=== PATIENT | male | born 1975 | race Caucasian/White ===

== ENCOUNTER 2022-06-07 07:41 | Emergency (ER) | payer OTHER ==
[2022-06-07 08:37] LABS: ALBUMIN 4.3 g/dL (3.5-5.0)
[2022-06-07 08:38] LABS: POTASSIUM 3.6 mmol/L (3.5-5.1)
[2022-06-07 08:39] LABS: CALCIUM 9.8 mg/dL (8.3-10.5)
[2022-06-07 08:40] LABS: TOTAL PROTEIN 8.2 g/dL (6.4-8.3)
[2022-06-07 08:42] LABS: TOTAL BILIRUBIN 1.2 mg/dL (0.2-1.2)
[2022-06-07 08:53] LABS: BASO # 0.01 K/mm3 (0.02-0.10); EOS # 0.01 K/mm3 (0.04-0.40); EOS % 0.2 % (0.0-4.0); HEMATOCRIT 45.4 % (42.0-52.0); MEAN CELL VOLUME 94 fl (78-100); MEAN CORPUSCULAR HEMOGLOBIN 33 pg (27-31); MEAN CORPUSCULAR HGB CONC 35 g/dL (33-37); MEAN PLATELET VOLUME 9.4 fl (7.4-10.4); MONO # 0.69 K/mm3 (0.20-0.80); NEU # 2.53 K/mm3 (1.40-6.50); PLATELET COUNT 184 K/mm3 (130-400); RED BLOOD COUNT 4.82 M/mm3 (4.20-5.60); WHITE BLOOD COUNT 4.1 K/mm3 (4.8-10.8)
[2022-06-07] MEDS ORDERED: ZESTRIL10 M1 PO (09:38)
[2022-06-07 09:41] VITALS: BP 170/105
== END 2022-06-07 09:42 | disposition home or self-care (01) ==
LOC: ED 07:41
PROVIDERS: Physician Assistant
DX: M79.18 Myalgia, other site (principal); I10 Essential (primary) hypertension; F41.9 Anxiety disorder, unspecified

== ENCOUNTER 2022-06-27 09:00 | Outpatient (RCR) | payer OTHER ==
[~2022-06-27 09:00] MED LIST: ZESTRIL10 M1 PO
== END 2022-07-24 | disposition home or self-care (01) ==
LOC: OT
DX: S46.211D Strain of muscle, fascia and tendon of other parts of biceps, right arm, subsequent encounter (principal); X58.XXXD Exposure to other specified factors, subsequent encounter

== ENCOUNTER 2022-07-25 08:00 | Outpatient (RCR) | payer OTHER | END 2022-08-23 | disposition home or self-care (01) | LOC: OT | DX: S46.211D Strain of muscle, fascia and tendon of other parts of biceps, right arm, subsequent encounter (principal); X58.XXXD Exposure to other specified factors, subsequent encounter ==

== ENCOUNTER → 2024-02-15 | Outpatient (CLI) | payer OTHER | LOC: RAD 13:06 | DX: M79.89 Other specified soft tissue disorders (principal) ==

== ENCOUNTER → 2024-05-01 | Outpatient (CLI) | payer OTHER ==
[2024-05-01 09:05] LABS: ALBUMIN 3.9 g/dL (3.5-5.0)
[2024-05-01 09:06] LABS: CALCIUM 9.9 mg/dL (8.3-10.5)
[2024-05-01 09:07] LABS: TOTAL PROTEIN 8.2 g/dL (6.4-8.3)
[2024-05-01 09:09] LABS: TOTAL BILIRUBIN 0.9 mg/dL (0.2-1.2)
[2024-05-01 09:15] LABS: BASO # 0.02 K/mm3 (0.02-0.10); EOS # 0.04 K/mm3 (0.04-0.40); EOS % 0.9 % (0.0-4.0); HEMATOCRIT 46.6 % (42.0-52.0); LYMPH# 1.13 K/mm3 (1.50-4.00); MEAN CELL VOLUME 99 fl (78-100); MEAN CORPUSCULAR HEMOGLOBIN 34 pg (27-31); MEAN CORPUSCULAR HGB CONC 34 g/dL (33-37); MEAN PLATELET VOLUME 8.7 fl (7.4-10.4); MONO # 0.41 K/mm3 (0.20-0.80); NEU # 2.72 K/mm3 (1.40-6.50); PLATELET COUNT 194 K/mm3 (130-400); RED BLOOD COUNT 4.72 M/mm3 (4.20-5.60); RED CELL DISTRIBUTION WIDTH 13.5 % (11.5-14.5); WHITE BLOOD COUNT 4.3 K/mm3 (4.8-10.8)
== END ==
LOC: LAB 08:45
PROVIDERS: Physician Assistant
DX: Z12.5 Encounter for screening for malignant neoplasm of prostate (principal); Z13.1 Encounter for screening for diabetes mellitus; Z13.220 Encounter for screening for lipoid disorders; Z13.29 Encounter for screening for other suspected endocrine disorder; K90.9 Intestinal malabsorption, unspecified; I10 Essential (primary) hypertension; M10.9 Gout, unspecified

== ENCOUNTER → 2024-07-22 | Outpatient (CLI) | payer OTHER ==
[2024-07-22 11:05] LABS: BASO # 0.02 K/mm3 (0.02-0.10); EOS # 0.04 K/mm3 (0.04-0.40); EOS % 0.5 % (0.0-4.0); HEMATOCRIT 46.3 % (42.0-52.0); LYMPH# 0.89 K/mm3 (1.50-4.00); MEAN CELL VOLUME 106 fl (78-100); MEAN CORPUSCULAR HEMOGLOBIN 36 pg (27-31); MEAN CORPUSCULAR HGB CONC 35 g/dL (33-37); MEAN PLATELET VOLUME 8.5 fl (7.4-10.4); MONO # 0.79 K/mm3 (0.20-0.80); NEU # 6.17 K/mm3 (1.40-6.50); PLATELET COUNT 276 K/mm3 (130-400); RED BLOOD COUNT 4.39 M/mm3 (4.20-5.60); RED CELL DISTRIBUTION WIDTH 12.6 % (11.5-14.5); WHITE BLOOD COUNT 7.9 K/mm3 (4.8-10.8)
[2024-07-22 11:06] LABS: ALBUMIN 3.7 g/dL (3.5-5.0)
[2024-07-22 11:08] LABS: CALCIUM 9.9 mg/dL (8.3-10.5)
[2024-07-22 11:09] LABS: TOTAL PROTEIN 8.2 g/dL (6.4-8.3)
[2024-07-22 11:11] LABS: TOTAL BILIRUBIN 1.1 mg/dL (0.2-1.2)
== END ==
LOC: LAB 10:50
PROVIDERS: Family Medicine
DX: M79.604 Pain in right leg (principal)

== ENCOUNTER → 2024-08-12 | Outpatient (CLI) | payer OTHER ==
[2024-08-13 14:33] LABS: CALCIUM 10.4 mg/dL (8.3-10.5)
[2024-08-13 14:34] LABS: TOTAL PROTEIN 8.3 g/dL (6.4-8.3)
[2024-08-13 14:36] LABS: TOTAL BILIRUBIN 0.8 mg/dL (0.2-1.2)
== END ==
LOC: LAB 10:33 → RAD 10:33
PROVIDERS: Physician Assistant
DX: E78.5 Hyperlipidemia, unspecified (principal); M25.551 Pain in right hip; M25.561 Pain in right knee

== ENCOUNTER → 2024-12-04 | Outpatient (CLI) | payer OTHER ==
[2024-12-04 08:49] LABS: BASO # 0.02 K/mm3 (0.02-0.10); EOS # 0.04 K/mm3 (0.04-0.40); EOS % 0.6 % (0.0-4.0); HEMOGLOBIN 15.8 g/dL (13.5-18.0); LYMPH# 0.78 K/mm3 (1.50-4.00); MEAN CELL VOLUME 104 fl (78-100); MEAN CORPUSCULAR HEMOGLOBIN 36 pg (27-31); MEAN CORPUSCULAR HGB CONC 34 g/dL (33-37); MEAN PLATELET VOLUME 8.2 fl (7.4-10.4); MONO # 0.66 K/mm3 (0.20-0.80); NEU # 5.36 K/mm3 (1.40-6.50); PLATELET COUNT 331 K/mm3 (130-400); RED BLOOD COUNT 4.44 M/mm3 (4.20-5.60); RED CELL DISTRIBUTION WIDTH 13.4 % (11.5-14.5); WHITE BLOOD COUNT 6.9 K/mm3 (4.8-10.8)
[2024-12-04 08:57] LABS: ALBUMIN 3.8 g/dL (3.5-5.0)
[2024-12-04 08:58] LABS: CALCIUM 10.4 mg/dL (8.3-10.5)
[2024-12-04 09:00] LABS: TOTAL PROTEIN 8.5 g/dL (6.4-8.3)
[2024-12-04 09:02] LABS: TOTAL BILIRUBIN 0.8 mg/dL (0.2-1.2)
[2024-12-05 16:59] LABS: ANA SCREEN with REFLEX Negative (Negative)
[2024-12-11 00:08] LABS: ANTI-CYC CITRULLINATED PEPT AB 10 units (0-19)
== END ==
LOC: LAB 08:34
PROVIDERS: Physician Assistant
DX: M25.50 Pain in unspecified joint (principal); E78.5 Hyperlipidemia, unspecified